=== PATIENT | female | born 1960 | race Caucasian/White ===

== ENCOUNTER 2017-06-06 11:47 | Emergency (ER) | payer BC ==
[2017-06-06 12:03] VITALS: BP 145/96; PULSE 86; TEMP 37.4; O2SAT 100
[2017-06-06] MEDS ORDERED: KETOROLAC TROMETHAMINE 60 MG/2 ML VIAL IM STA (12:22)
[2017-06-06] MEDS ORDERED: PRED20TA PO (12:23)
--- NOTE | 2017-06-06 12:25 | EMERGENCY ROOM VISIT NOTE ---
ED Visit Note First contact with patient: 12:10 CHIEF COMPLAINT: Low back pain HISTORY OF PRESENT ILLNESS: This 56-year-old female patient presents to the emergency department, ambulatory, complaining of pain in the low back which began 2 days ago. The patient was on vacation over the past week and was completing a lot of projects at home. She states her back began to flare up, and she thought it would improve with mowing the grass. She states at this point, she had significant discomfort in her left lower back radiating down her left leg. The pain was gradual in onset, is now constant and worse with movement. The patient notes the pain as sharp, and constant and a 10/10 during flareups, and 7/10 at rest. The patient has taken or 100 mg ibuprofen every 4 hours without relief of the pain. The patient denies any loss of control of their bowel or bladder functions. There has been no leg numbness or weakness, and no change in sensation, but the patient does complain of tingling radiating down the posterior, lateral aspect of her left leg. No nausea or vomiting or abdominal pain. No chest pain or shortness of breath. The patient has not had prior back injuries. No dysuria or increased urinary frequency. REVIEW OF SYSTEMS: A 10 system review of systems was performed with positives and pertinent negatives listed in the history of present illness. All other systems were reviewed and are negative. ALLERGIES: None MEDICATIONS: Flonase PMH: None SOCIAL HISTORY: The patient lives locally with family. She denies drug, alcohol , tobacco use. PHYSICAL EXAM: VITALS: Vitals are noted on the nurse's note and reviewed by myself. Vital signs stable. GENERAL: Is a 56-year-old white female, in no acute distress, but appears in pain, nondiaphoretic, well-developed well-nourished. SKIN: The skin was without rashes, erythema, edema, or bruising. Capillary refill less than 2 seconds. NECK: Supple without nuchal rigidity. No cervical spine tenderness. No paraspinous muscle tenderness. HEART: Regular rate and rhythm without murmurs gallops or rubs. LUNGS: Clear to auscultation bilaterally without wheezes, rales or rhonchi. ABDOMEN: Positive bowel sounds x 4. Normal tympanic percussion. Soft, nontender, without masses or organomegaly. Higgins sign negative. MUSCULOSKELETAL: No muscle atrophy, erythema, or edema noted of the back. There is no tenderness over the lumbar spinous processes. There is moderate tenderness over the paraspinous muscles in the left. There is no tenderness over the thoracic spine or paraspinous muscles. There are no muscle spasms present. The patient is slow to move around with maximum tenderness with changing positions, and lying flat on her back. Positive straight leg raise test on the left. NEURO: Patient was alert and oriented to person place and time. Normal sensation to light and sharp touch. Deep tendon reflexes 2+ in the lower extremities. Dorsalis pedis pulse 2+ bilaterally. Strength 5/5 and equal in the bilateral lower extremities. EMERGENCY DEPARTMENT COURSE: Was seen and evaluated as above. She was given 60 mg Toradol IM. I discussed options for treatment including steroids versus high -dose anti-inflammatories. The patient does wish to proceed with steroids. I did offer pain medication the patient declines. I encouraged the patient to follow up with her PCP and consider physical therapy for her sciatica. The patient was in agreement with the assessment and plan, and was feeling better prior to discharge. She was discharged home in good condition. I attest that I have personally reviewed the patient's current medication list. Patient was found to have normal blood pressure on screening and does not require follow-up. DIFFERENTIAL DIAGNOSIS: Sciatica, lumbar strain, disc protrusion, spinal stenosis, cauda equina syndrome, malignancy, and others DIAGNOSIS: Sciatica Current/Historical Medications Scheduled Fluticasone Propionate (Nasal) (Flonase Allergy Relief), 1 SPRAY YANDY DAILY Multivitamin (Multivitamin), 1 TAB PO DAILY Prednisone (Prednisone), 0 PO DAILY Allergies Coded Allergies: No Known Allergies (Unverified , 06/06/17) Vital Signs Date Time Temp Pulse Resp B/P (MAP) Pulse Ox O2 Delivery O2 Flow Rate FiO2 06/06/17 12:03 37.4 86 20 145/96 100 Room Air Medications Administered Medications (Trade) Dose Ordered Sig/Aron Route Start Time Stop Time Status Last Admin Dose Admin Ketorolac Tromethamine (Toradol Inj) 60 mg NOW STAT IM 06/06/17 12:22 06/06/17 12:23 DC 06/06/17 12:40 60 MG Departure Information Impression Primary Impression: Sciatica Dispostion Home / Self-Care Condition GOOD Prescriptions Prednisone (Prednisone) 20 Mg Tab 0 PO DAILY, #18 TAB 3 DAILY FOR 3 DAYS, THEN 2 DAILY FOR 3 DAYS, THEN 1 DAILY FOR 3 DAYS. Prov: Rosangela Gusman, ARTHUR 06/06/17 Referrals Winston Cisneros M.D. (PCP) Patient Instructions ED Sciaticajay, My [facility] Additional Instructions You have been treated in the Emergency Department for Back Pain. You have been prescribed Prednisone. This is a steroid which will help decrease your inflammation, redness, and itch. Take this medicine as prescribed. Take the ENTIRE 9 day course. It is best to take steroids early in the morning as PM dosing can affect your sleeping patterns. For pain control, you can use the following bhye-eoz-hrazkhu medicines (if >12 yo): Ibuprofen(Motrin, Advil) may be used for fever or pain. Use 600mg every six hours as needed. Take with food. Avoid using more than 2400mg in a 24 hour period. Do not use 2400mg per day for more than three consecutive days without physician direction. Prolonged inappropriate use can lead to stomach upset or ulcers. Do not take this or any other NSAIDs while taking Prednisone. (AND/OR) Acetaminophen(Tylenol) may be used for fever or pain. Use 1000mg every six hours as needed. Avoid using more than 3000mg in a 24 hour period. If this is an acute injury, ice can be applied to the area of pain for the first 3 days to help decrease pain and inflammation. After the first 3 days, a heating pad can be used over the area for continued soothing relief. You should schedule a follow-up appointment in 2-3 days with your Primary Care Provider for further evaluation and treatment of your back pain. You may want to consider a Physical Therapy referral. Return to the Emergency Department if your current symptoms worsen despite treatment course outlined above, or if you develop any of the following symptoms : intractable pain despite aforementioned treatment course, loss of control of your bowel or bladder, numbness or tingling in your groin, or development of a fever. Work Instructions Return To Work: 3 days Problem Qualifiers Primary Impression: Sciatica Laterality: left Qualified Codes: M54.32 - Sciatica, left side
[2017-06-06] MEDS ORDERED: MULT-506 PO (12:44)
[2017-06-06] MEDS ORDERED: FLUT0.15 NAE (12:44)
== END 2017-06-06 12:45 | disposition home or self-care (01) ==
LOC: C.EDB 11:50 → C.EDD 12:45
DX: M54.30 Sciatica, unspecified side (principal)